=== PATIENT | male | born 1985 | race Caucasian/White ===

== ENCOUNTER → 2023-08-21 | Outpatient (CLI) | payer BC ==
[~2023-08-21] MED LIST: BUSP15 PO; CEPH500 PO; CLIN300 PO; CRUTCH2 USE; CYCL10 PO; Cinnamon500 MG PO; Daily Multiple1 EACH PO; HYDACE5 PO; NAPR220 PO; NAPR500 PO; NAPR550 PO; OTC DECONGESTANT; OXYACE5T PO; PENVK500; PENVK500 PO; PROM25 PO; RANI150 PO; SERT25 PO; SULTRIDS PO
[2023-08-24 18:36] LABS: APTIMA MEDIA TYPE Urine; C. TRACHOMATIS BY TMA Negative (Negative); N. GONORRHOEAE BY TMA Negative (Negative); SPECIMEN SOURCE Urine; T. VAGINALIS BY TMA Negative (Negative)
== END | disposition home or self-care (01) ==
LOC: LAB SHORT 15:10 → LAB 15:10
PROVIDERS: Registered Nurse Community Health
DX: Z11.3 Encounter for screening for infections with a predominantly sexual mode of transmission (principal)
CPT/HCPCS: 87491; 87591; 87661

== ENCOUNTER → 2023-09-26 | Outpatient (CLI) | payer BC | END | disposition home or self-care (01) | LOC: LAB SHORT 10:53 → LAB 10:53 | DX: R39.15 Urgency of urination (principal) | CPT/HCPCS: 87086 ==

== ENCOUNTER 2024-04-01 11:07 | Day surgery (SDC) | payer BC ==
[~2024-04-01] VITALS: Ht 182.9 cm; Wt 109.4 kg
[~2024-04-01 11:07] MED LIST changes: +Lactated Ringer's 1,000 ML IV ONE
[2024-04-01] MEDS ORDERED: Lactated Ringer's 1,000 ML IV ONE (13:28)
[2024-04-01] MEDS ORDERED: FentaNYL Citrate 50 MCG/ML 2 ML Injection ONE (13:44)
[2024-04-01] MEDS ORDERED: Midazolam HCL 1 MG/ML 5MLVIAL ONE (13:44)
[2024-04-01] MEDS ORDERED: propofoL 50 ML IV ONE (13:44)
[2024-04-01 14:27] VITALS: BP 111/65
== END 2024-04-01 14:48 | disposition home or self-care (01) ==
LOC: ORSCSDS 11:07
PROVIDERS: Internal Medicine Gastroenterology
PROC: 0DBN8ZX Excision of Sigmoid Colon, Via Natural or Artificial Opening Endoscopic, Diagnostic (ICD-10-PCS; principal; 2024-04-01 12:45)
PROC: 0DBE8ZX Excision of Large Intestine, Via Natural or Artificial Opening Endoscopic, Diagnostic (ICD-10-PCS; principal; 2024-04-01 12:45)
DX: K62.5 Hemorrhage of anus and rectum (principal); K63.5 Polyp of colon; R19.7 Diarrhea, unspecified; Z68.32 Body mass index [BMI] 32.0-32.9, adult; Z87.891 Personal history of nicotine dependence
CPT/HCPCS: 88305; J2250; J2704; J3010; J7120